=== PATIENT | male | born 1995 | race Caucasian/White ===

== ENCOUNTER 2017-08-30 01:43 | Emergency (ER) | payer OTHER ==
[2017-08-30] MEDS: IPRATROPIUM/ALBUTEROL SULFATE 3 ML AMPUL.NEB NEB ONE (01:54)
--- NOTE | 2017-08-30 01:57 | ED Physician Documentation ---
General Adult - HISTORIAN Historian: patient - HPI Stated Complaint: Shortness of air Chief Complaint: General Adult Onset: hours Timing: still present Severity: moderate Further Comments: yes (Pt is a 22 yo male with asthma who usually uses Duoneb HFN 4x/day. 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 Pt believes his sob is the result only of missing his Duoneb dose and does not represent a more serious exacerbation.) - ROS CONST: no problems EYES/ENT: none CVS/RESP: shortness of breath GI/: none MS/SKIN/LYMPH: none - PAST HX Past History: asthma Surgeries/Procedures: other (appendectomy) Allergies/Adverse Reactions: Allergies Allergy/AdvReac Type Severity Reaction Status Date / Time amoxicillin Allergy Mild Verified 08/30/17 01:52 Penicillins Allergy Mild Verified 08/30/17 01:52 Home Medications: Ambulatory Orders Medication Instructions Recorded Albuterol Sulfate [Proair HFA] 1 inh IH Q4 PRN 08/30/17 Fluticasone/Salmeterol [Advair 2 puff INH DAILY 08/30/17 250-50 Diskus] Ipratropium/Albuterol Sulfate 3 ml NEB QID 08/30/17 [Duoneb] - SOCIAL HX Smoking History: cigarettes - FAMILY HX Family History: No - VITAL SIGNS Vital Signs: Vital Signs Temp Pulse Resp BP Pulse Ox 97.8 F 106 H 20 134/77 98 08/30/17 01:45 08/30/17 01:45 08/30/17 01:45 08/30/17 01:45 08/30/17 01:45 - REVIEWED ASSESSMENTS Nursing Assessment Reviewed: Yes Vitals Reviewed: Yes Progress - Progress Progress: Duoneb HNF x 1 Solu-medrol 125 mg IM improved. ED Results Lab/Radiology - Orders Orders: ED Orders Category Date Time Status Ipratropium/Albuterol Sulfate [Duoneb] Med 08/30/17 01:53 Discontinued 3 ml NEB NOW ONE General Adult Physical Exam - PHYSICAL EXAM GENERAL APPEARANCE: mild distress EENT: pharynx normal NECK: normal inspection, supple RESPIRATORY: no resp distress, chest non-tender, wheezes (mild) CVS: reg rate & rhythm, heart sounds normal BACK: normal inspection SKIN: warm/dry, normal color EXTREMITIES: non-tender, normal range of motion, no evidence of injury, no edema NEURO: oriented X3, motor nml, sensation nml Discharge Clincal Impression: Asthma Condition: Good Disposition: 01 HOME, SELF-CARE Decision to Admit: NO Decision Time: 02:28
[2017-08-30] MEDS: methylPREDNISolone SOD SUCC 125 MG/2 ML VIAL IM ONE (02:35)
[2017-08-30 02:41] VITALS: BP 114/78
== END 2017-08-30 02:40 | disposition home or self-care (01) ==
LOC: ED 01:43
DX: J45.909 Unspecified asthma, uncomplicated (principal)
CPT/HCPCS: 94640; 96372; 99283; J2930

== ENCOUNTER 2017-09-10 23:03 | Emergency (ER) | payer SELFPAY ==
[2017-09-10] MEDS ORDERED: IBUPROFEN 200 MG TABLET PO ONE (23:11)
[2017-09-10 23:12] VITALS: BP 146/72
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
== END 2017-09-10 23:24 | disposition home or self-care (01) ==
LOC: ED 23:03
DX: S90.02XA Contusion of left ankle, initial encounter (principal); X58.XXXA Exposure to other specified factors, initial encounter; Y93.9 Activity, unspecified; Y92.9 Unspecified place or not applicable; Y99.9 Unspecified external cause status
CPT/HCPCS: 99282